=== PATIENT | female | born 1980 | race Caucasian/White ===

== ENCOUNTER 2016-04-26 11:40 | Emergency (ER) | payer OTHER ==
[2016-04-26 12:25] VITALS: BP 124/80; PULSE 80; TEMP 98.6; BMI 23.8
[2016-04-26] MEDS ORDERED: KETOROLAC TROMETHAMINE 60 MG/2 ML VIAL IM ONE (12:45)
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
[2016-04-26] MEDS ORDERED: KETOROLAC TROMETHAMINE 60 MG/2 ML VIAL ONE (13:20)
== END 2016-04-26 13:51 | disposition home or self-care (01) ==
LOC: JERFT 11:40
PROC: 3E0233Z Introduction of Anti-inflammatory into Muscle, Percutaneous Approach (ICD-10-PCS; principal; 2016-04-26)
DX: M62.830 Muscle spasm of back (principal); M50.223 Other cervical disc displacement at C6-C7 level; M51.26 Other intervertebral disc displacement, lumbar region; V89.2XXS Person injured in unspecified motor-vehicle accident, traffic, sequela
CPT/HCPCS: 84703; 99281-25